=== PATIENT | male | born 1990 ===

== ENCOUNTER 2024-12-28 11:45 | Inpatient (IN) | payer SELFPAY ==
[~2024-12-28] VITALS: Ht 177.8 cm; Wt 64.5 kg
== END 2025-01-02 15:00 | disposition home or self-care (01) | DRG 885 ==
LOC: BHU 11:45
PROVIDERS: ADMIT Psychiatry & Neurology Psychiatry
PROC: GZHZZZZ Group Psychotherapy (ICD-10-PCS; principal; 2024-12-29)
DX: F33.2 Major depressive disorder, recurrent severe without psychotic features (principal); R45.851 Suicidal ideations; F41.9 Anxiety disorder, unspecified; Z91.018 Allergy to other foods; Z88.5 Allergy status to narcotic agent; Z88.2 Allergy status to sulfonamides; Z91.048 Other nonmedicinal substance allergy status; Z91.011 Allergy to milk products